=== PATIENT | male | born 1945 | race Caucasian/White ===

== ENCOUNTER 2020-04-27 06:41 | Outpatient (CLI) | payer MEDICARE, OTHER ==
[2020-04-27 14:47] LABS: #Basophils 0.1 10x3/uL (0.0-0.2); #Eosinphils 0.5 10x3/uL (0.0-0.5); #Monocytes 0.7 10x3/uL (0.0-1.1); #Neutrophils 4.8 10x3/uL (1.5-8.4); %Basophils 0.6 % (0.0-2.0); %Lymphocytes 25.2 % (18.0-47.0); %Monocytes 8.8 % (0.0-10.0); %Neutrophils 58.9 % (40.0-75.0); Hemoglobin 11.4 g/dL (14.0-18.0); Mean Corpuscular HGB CONC 30.7 G/DL (32.0-36.0); Mean Corpuscular Volume 94.4 fl (80.0-100.0); Mean Platelet Volume 11.5 fl (7.4-10.4); Platelet Count 158 10x3/uL (130-400); RBC Distribution Width 15.4 % (11.5-14.5); Red Blood Cell (RBC) Count 3.93 10x6/uL (4.40-5.80); White Blood Cell (WBC) Count 8.1 10x3/uL (4.5-11.0)
[2020-04-27 15:04] LABS: Anion Gap 15 mmol/L (10-20); BUN (Urea Nitrogen) 14 mg/dL (8.4-25.7); Calc. Creatinine Clearance 0 mL/min (70-130); Calcium 8.7 mg/dL (7.8-10.44); Carbon Dioxide 27 mmol/L (23-31); Chloride 106 mmol/L (98-107); Glucose 113 mg/dL (83-110); Potassium 4.7 mmol/L (3.5-5.1); Sodium 143 mmol/L (136-145)
[2020-04-28 02:56] LABS: SARS-CoV-2 MS2 Positive; SARS-CoV-2 N Gene Negative; SARS-CoV-2 S Gene Negative; SARS-CoV-2 by NAA Not Detected (NotDetected); SARS-CoV-2 orf1ab Negative
== END 2020-04-27 06:42 | disposition home or self-care (01) ==
LOC: LABBT 06:41
PROVIDERS: ATTEND Orthopaedic Surgery
DX: Z01.818 Encounter for other preprocedural examination (principal); Z20.828 Contact with and (suspected) exposure to other viral communicable diseases; S83.241A Other tear of medial meniscus, current injury, right knee, initial encounter
CPT/HCPCS: 80048; 85025; U0003; 87635; 93005; 93010

== ENCOUNTER 2020-04-30 05:55 | Day surgery (SDC) | payer MEDICARE, OTHER ==
[2020-04-29 10:42] VITALS: BMI 32.1
[2020-04-30] MEDS ORDERED: Midazolam HCl 2 mg/2 ml Vial ONE (06:28)
[2020-04-30] MEDS ORDERED: Fentanyl 100 MCG/2 ML VIAL ONE (06:28)
[2020-04-30] MEDS ORDERED: PROPOFOL 20 ML ONE (06:52)
[2020-04-30] MEDS ORDERED: PHENYLEPHRINE-NS 100 MCG/ML 10 ML SYRINGE ONE (09:52)
[2020-04-30] MEDS ORDERED: PROPOFOL 200 MG/20 ML VIAL ONE (09:52)
[2020-04-30] MEDS ORDERED: Lidocaine 2% w/Epinephrine 1:200K 20 ML VIAL ONE (09:52)
[2020-04-30] MEDS ORDERED: Dexamethasone 20 MG/5 ML VIAL ONE (09:52)
[2020-04-30] MEDS ORDERED: Ondansetron PF 4 MG/2 ML Vial ONE (09:52)
[2020-04-30] MEDS ORDERED: Bupivacaine PF 0.5% 30 ML VIAL ONE (09:52)
[2020-04-30] MEDS ORDERED: Lidocaine 1% PF 5 ML VIAL ONE (09:52)
--- NOTE | 2020-04-30 11:03 | OP ---
DATE OF PROCEDURE: 04/30/2020 PROCEDURE PERFORMED: Left knee arthroscopic partial medial meniscectomy. PREOPERATIVE DIAGNOSIS: Medial meniscus tear, left knee. 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 No loose bodies. Mild patellofemoral arthritis. ANESTHESIA: General. BLOOD LOSS: Minimal. SPECIMEN: None. DRAINS: None. COMPLICATION: None. DESCRIPTION OF PROCEDURE: Informed consent was obtained. The patient was taken to the operating room where general anesthesia was induced. Left leg was prepped and draped in the usual sterile fashion. Scope was placed in the lateral portal. Probe was placed in the medial portal. Findings were as above. I debrided the medial meniscus with basket forceps, smoothed with a 4.0 full-radius resector. I did this alternating until most of the posterior medial meniscus was removed. I did perform a small abrasion chondroplasty on the medial femoral and the tibial plateau surfaces. I swept the gutters for loose bodies, there were no loose bodies. The knee was irrigated and drained. Sterile dressings applied. Job ID: [id number]
== END 2020-04-30 10:35 | disposition home or self-care (01) ==
LOC: SDC 05:55
PROVIDERS: ATTEND Orthopaedic Surgery
PROC: 0SBD4ZZ Excision of Left Knee Joint, Percutaneous Endoscopic Approach (ICD-10-PCS; principal; 2020-04-30)
DX: S83.242A Other tear of medial meniscus, current injury, left knee, initial encounter (principal); M94.262 Chondromalacia, left knee; I10 Essential (primary) hypertension; I25.10 Atherosclerotic heart disease of native coronary artery without angina pectoris; E78.5 Hyperlipidemia, unspecified; Z79.82 Long term (current) use of aspirin; Z79.899 Other long term (current) drug therapy; Z87.891 Personal history of nicotine dependence; Z95.1 Presence of aortocoronary bypass graft; Z95.5 Presence of coronary angioplasty implant and graft
CPT/HCPCS: J0690; J1100; J2250; J2405; J2704; J3010; S0020

== ENCOUNTER 2020-08-13 10:53 | Inpatient (IN) | payer MEDICARE, OTHER ==
[2020-08-13 11:38] LABS: #Eosinphils 0.2 thou/uL (0.0-0.7); #Lymphocytes 1.5 thou/uL (1.20-3.40); #Monocytes 0.9 thou/uL (0.11-0.59); #Neutrophils 4.4 thou/uL (1.40-6.50); %Basophils 0.1 % (0.0-1.0); %Eosinophils 3.3 % (0.0-10.0); %Lymphocytes 21.2 % (21.0-51.0); %Monocytes 12.5 % (0.0-10.0); %Neutrophils 62.9 % (42.0-75.0); Hemoglobin 6.1 g/dL (14.0-18.0); Mean Corpuscular HGB CONC 30.1 g/dL (32.0-36.0); Mean Corpuscular Hemoglobin 25.3 pg (27.0-31.0); Mean Platelet Volume 10.3 fL (7.4-10.4); Platelet Count 156 thou/uL (130-400); RBC Distribution Width 16.2 % (11.5-14.5); Red Blood Cell (RBC) Count 2.39 mill/uL (4.70-6.10)
[2020-08-13 11:40] LABS: INR-International Normal Ratio 2.1; PTT 38.7 sec (22.9-36.1)
[2020-08-13 11:58] LABS: ALT (SGPT) 8 U/L (8-55); AST (SGOT) 19 U/L (5-34); Albumin 3.7 g/dL (3.4-4.8); Alkaline Phosphatase 97 U/L (40-110); Anion Gap 12 mmol/L (10-20); BUN (Urea Nitrogen) 16 mg/dL (8.4-25.7); Bilirubin, Total 0.7 mg/dL (0.2-1.2); Calc. Creatinine Clearance 0 mL/min (70-130); Calcium 8.2 mg/dL (7.8-10.44); Carbon Dioxide 22 mmol/L (23-31); Chloride 110 mmol/L (98-107); Globulin 2.6 g/dL (2.4-3.5); Glucose 117 mg/dL (83-110); Potassium 4.4 mmol/L (3.5-5.1); Protein, Total 6.3 g/dL (5.8-8.1); Sodium 140 mmol/L (136-145)
[2020-08-13] MEDS ORDERED: Acetaminophen 325 MG TAB PO PRN (12:51)
[2020-08-13] MEDS ORDERED: Acetaminophen 650 MG Suppository PR PRN (12:51)
[2020-08-13 14:37] LABS: Iron 28 ug/dL (65-175); Iron Binding Capacity, Total 430 mcg/dL (261-462)
[2020-08-13 15:57] VITALS: BMI 31.7
[2020-08-13 19:02] LABS: Hemoglobin 6.8 g/dL (14.0-18.0)
[2020-08-13] MEDS ORDERED: Atorvastatin Calcium 40 MG TAB PO SCH (21:00)
[2020-08-14 01:34] LABS: Hemoglobin 6.6 g/dL (14.0-18.0)
[2020-08-14 02:54] LABS: SARS-CoV-2 PCR by NAA Not Detected (NotDetected)
[2020-08-14 04:40] LABS: #Eosinphils 0.3 thou/uL (0.0-0.7); #Lymphocytes 1.7 thou/uL (1.20-3.40); #Monocytes 0.9 thou/uL (0.11-0.59); #Neutrophils 5.2 thou/uL (1.40-6.50); %Basophils 0.3 % (0.0-1.0); %Eosinophils 4.2 % (0.0-10.0); %Lymphocytes 20.4 % (21.0-51.0); %Monocytes 11.1 % (0.0-10.0); %Neutrophils 63.9 % (42.0-75.0); Hemoglobin 6.8 g/dL (14.0-18.0); Mean Corpuscular HGB CONC 30.9 g/dL (32.0-36.0); Mean Platelet Volume 10.7 fL (7.4-10.4); Platelet Count 144 thou/uL (130-400); White Blood Cell (WBC) Count 8.2 thou/uL (4.8-10.8)
[2020-08-14 04:57] LABS: Anion Gap 13 mmol/L (10-20); BUN (Urea Nitrogen) 14 mg/dL (8.4-25.7); Calc. Creatinine Clearance 106 mL/min (70-130); Calcium 7.8 mg/dL (7.8-10.44); Carbon Dioxide 21 mmol/L (23-31); Chloride 109 mmol/L (98-107); Glucose 96 mg/dL (83-110); Sodium 139 mmol/L (136-145)
[2020-08-14 07:19] LABS: Hemoglobin 6.5 g/dL (14.0-18.0)
[2020-08-14] MEDS ORDERED: Nitroglycerin 0.4 MG TAB (25 Tab Bottle) SL PRN (11:21)
[2020-08-14] MEDS ORDERED: Pantoprazole 40 MG VIAL IVP SCH (11:30)
[2020-08-14] MEDS ORDERED: GoLYTELY 4,000 ml Bottle PO SCH (17:00)
[2020-08-14 17:07] LABS: Hemoglobin 8.3 g/dL (14.0-18.0)
[2020-08-14] MEDS: Atorvastatin Calcium 40 MG TAB PO SCH (20:34)
[2020-08-14] MEDS: Pantoprazole 40 MG VIAL IVP SCH (20:35)
[2020-08-15 05:52] LABS: Hemoglobin 7.9 g/dL (14.0-18.0); Mean Corpuscular HGB CONC 31.9 g/dL (32.0-36.0); Mean Corpuscular Hemoglobin 26.8 pg (27.0-31.0); RBC Distribution Width 16.4 % (11.5-14.5); Red Blood Cell (RBC) Count 2.96 mill/uL (4.70-6.10); White Blood Cell (WBC) Count 8.2 thou/uL (4.8-10.8)
[2020-08-15 06:03] LABS: #Eosinphils 0.4 thou/uL (0.0-0.7); #Lymphocytes 1.2 thou/uL (1.20-3.40); #Monocytes 0.9 thou/uL (0.11-0.59); #Neutrophils 5.7 thou/uL (1.40-6.50); %Basophils 0.2 % (0.0-1.0); %Eosinophils 5.4 % (0.0-10.0); %Lymphocytes 14.6 % (21.0-51.0); %Monocytes 10.6 % (0.0-10.0); %Neutrophils 69.2 % (42.0-75.0); Elliptocytes SLIGHT = 2-5 cells (100X) (0-1/hpf); MDiff Complete? YES; Mean Platelet Volume 11.3 fL (7.4-10.4); Platelet Count 115 thou/uL (130-400); Platelet Morphology Comment Appears Decreased; Polychromasia SLIGHT = 2-3 cells (100X) (0-2/hpf); Tear Drops SLIGHT = 2-5 cells (100X) (0-1/hpf)
[2020-08-15 07:06] LABS: BUN (Urea Nitrogen) 13 mg/dL (8.4-25.7); Calc. Creatinine Clearance 108 mL/min (70-130); Calcium 8.1 mg/dL (7.8-10.44); Carbon Dioxide 18 mmol/L (23-31); Chloride 109 mmol/L (98-107); Glucose 98 mg/dL (83-110); Potassium 3.9 mmol/L (3.5-5.1); Sodium 140 mmol/L (136-145)
[2020-08-15 07:17] LABS: Anion Gap 17 mmol/L (10-20)
[2020-08-15] MEDS: Pantoprazole 40 MG VIAL IVP SCH (08:54)
[2020-08-15] MEDS ORDERED: PROPOFOL 200 MG/20 ML VIAL ONE (11:40)
[2020-08-15] MEDS ORDERED: Lidocaine 1% PF 5 ML VIAL ONE (11:40)
[2020-08-15] MEDS ORDERED: Promethazine HCl 25 MG/ML VIAL IM PRN (12:09)
[2020-08-15] MEDS ORDERED: Promethazine HCl 25 MG/ML VIAL SLOW IVP PRN (12:09)
[2020-08-15] MEDS ORDERED: Ondansetron HCl/PF 4 MG/2 ML Vial IVP PRN (12:09)
[2020-08-15] MEDS: Atorvastatin Calcium 40 MG TAB PO SCH (20:20)
[2020-08-16 04:45] LABS: #Eosinphils 0.5 thou/uL (0.0-0.7); #Lymphocytes 1.4 thou/uL (1.20-3.40); #Monocytes 0.9 thou/uL (0.11-0.59); #Neutrophils 4.4 thou/uL (1.40-6.50); %Basophils 0.2 % (0.0-1.0); %Eosinophils 6.4 % (0.0-10.0); %Lymphocytes 19.8 % (21.0-51.0); %Neutrophils 61.6 % (42.0-75.0); Hemoglobin 7.9 g/dL (14.0-18.0); Mean Corpuscular HGB CONC 31.3 g/dL (32.0-36.0); Mean Corpuscular Hemoglobin 26.4 pg (27.0-31.0); Mean Corpuscular Volume 84.5 fL (78.0-98.0); Mean Platelet Volume 10.3 fL (7.4-10.4); Platelet Count 157 thou/uL (130-400); RBC Distribution Width 16.4 % (11.5-14.5); Red Blood Cell (RBC) Count 2.99 mill/uL (4.70-6.10); White Blood Cell (WBC) Count 7.2 thou/uL (4.8-10.8)
[2020-08-16 05:03] LABS: Anion Gap 12 mmol/L (10-20); BUN (Urea Nitrogen) 15 mg/dL (8.4-25.7); Calc. Creatinine Clearance 97 mL/min (70-130); Calcium 8.2 mg/dL (7.8-10.44); Carbon Dioxide 26 mmol/L (23-31); Chloride 107 mmol/L (98-107); Glucose 102 mg/dL (83-110); Potassium 3.6 mmol/L (3.5-5.1); Sodium 141 mmol/L (136-145)
[2020-08-16 13:47] VITALS: BP 131/72; TEMP 98.9
== END 2020-08-16 16:42 | disposition home or self-care (01) | DRG 811 ==
LOC: ERS 10:53 → 2NO 12:35
PROVIDERS: ADMIT Student in an Organized Health Care Education/Training Program; ATTEND Internal Medicine
PROC: 30233N1 Transfusion of Nonautologous Red Blood Cells into Peripheral Vein, Percutaneous Approach (ICD-10-PCS; 2020-08-13)
PROC: 0DB68ZX Excision of Stomach, Via Natural or Artificial Opening Endoscopic, Diagnostic (ICD-10-PCS; principal; 2020-08-15)
PROC: 0DBN8ZZ Excision of Sigmoid Colon, Via Natural or Artificial Opening Endoscopic (ICD-10-PCS; 2020-08-15)
DX: D50.0 Iron deficiency anemia secondary to blood loss (chronic) (principal); K29.71 Gastritis, unspecified, with bleeding; K25.4 Chronic or unspecified gastric ulcer with hemorrhage; I25.10 Atherosclerotic heart disease of native coronary artery without angina pectoris; K29.80 Duodenitis without bleeding; I48.0 Paroxysmal atrial fibrillation; K57.30 Diverticulosis of large intestine without perforation or abscess without bleeding; I25.5 Ischemic cardiomyopathy; K64.8 Other hemorrhoids; K63.5 Polyp of colon; I11.0 Hypertensive heart disease with heart failure; I50.9 Heart failure, unspecified; E78.5 Hyperlipidemia, unspecified; Z20.822 Contact with and (suspected) exposure to COVID-19; Z95.810 Presence of automatic (implantable) cardiac defibrillator; Z79.01 Long term (current) use of anticoagulants; Z95.1 Presence of aortocoronary bypass graft; Z87.891 Personal history of nicotine dependence
CPT/HCPCS: 36415; 36416; 36430; 80048; 80053; 82274; 82607; 82728; 82746; 83540; 83550; 83880; 84484; 85025; 85610; 85730; 86850; 86900; 86901; 87635; 88305; 90471; 90732; C9113; G0009; J2704; P9016; U0003; U0005

== ENCOUNTER 2020-11-26 13:00 | Outpatient (CLI) | payer MEDICARE, OTHER ==
[2020-11-26 15:09] LABS: #Eosinphils 0.3 10x3/uL (0.0-0.5); #Monocytes 0.4 10x3/uL (0.0-1.1); #Neutrophils 4.5 10x3/uL (1.5-8.4); %Basophils 0.6 % (0.0-2.0); %Eosinophils 4.4 % (0.0-6.0); %Lymphocytes 25.4 % (18.0-47.0); %Monocytes 5.7 % (0.0-10.0); %Neutrophils 63.5 % (40.0-75.0); Hemoglobin 12.8 g/dL (13.5-17.5); Mean Corpuscular HGB CONC 31.2 g/dL (32.0-36.0); Mean Corpuscular Hemoglobin 29.4 pg (27.0-33.0); Mean Platelet Volume 10.8 fl (7.4-10.4); Platelet Count 122 10x3/uL (150-450); RBC Distribution Width 17.6 % (11.5-14.5); Red Blood Cell (RBC) Count 4.36 10x6/uL (4.32-5.72); White Blood Cell (WBC) Count 7.1 10x3/uL (3.5-10.5)
[2020-11-27 13:21] LABS: Reference Lab Name LABCORP
[2020-11-27 13:22] LABS: Ref Lab Test Ordered CYTOCHROME P450
== END 2020-11-26 13:01 | disposition home or self-care (01) ==
LOC: LABBT 13:00
PROVIDERS: ATTEND Internal Medicine Cardiovascular Disease
DX: Z01.818 Encounter for other preprocedural examination (principal); I48.0 Paroxysmal atrial fibrillation; K92.2 Gastrointestinal hemorrhage, unspecified
CPT/HCPCS: 80053; 81001; 85025; 85610; 85730; 86850; 86900; 86901; 93005; 93010

== ENCOUNTER 2021-01-07 10:11 | Outpatient (CLI) | payer MEDICARE, OTHER ==
[2021-01-07 12:46] LABS: INR-International Normal Ratio 1.2; Prothrombin Time 13.5 sec (9.5-12.1)
[2021-01-07 12:47] LABS: Anion Gap 14 mmol/L (10-20); BUN (Urea Nitrogen) 13 mg/dL (8.4-25.7); Calc. Creatinine Clearance 0 mL/min (70-130); Calcium 8.9 mg/dL (7.8-10.44); Carbon Dioxide 24 mmol/L (23-31); Chloride 110 mmol/L (98-107); Glucose 104 mg/dL (83-110); Potassium 4.1 mmol/L (3.5-5.1); Sodium 144 mmol/L (136-145)
[2021-01-07 12:48] LABS: Hemoglobin 11.8 g/dL (13.5-17.5); Mean Corpuscular HGB CONC 32.4 g/dL (32.0-36.0); Mean Corpuscular Hemoglobin 31.5 pg (27.0-33.0); Mean Corpuscular Volume 97.1 fl (81.2-95.1); Platelet Count 144 10x3/uL (150-450); RBC Distribution Width 15.9 % (11.5-14.5); Red Blood Cell (RBC) Count 3.75 10x6/uL (4.32-5.72); White Blood Cell (WBC) Count 6.3 10x3/uL (3.5-10.5)
[2021-01-08 01:30] LABS: SARS-CoV-2 PCR by NAA Not Detected (NotDetected)
== END 2021-01-07 10:12 | disposition home or self-care (01) ==
LOC: LABBT 10:11
PROVIDERS: ATTEND Internal Medicine Cardiovascular Disease
DX: Z01.818 Encounter for other preprocedural examination (principal); I48.91 Unspecified atrial fibrillation; Z20.822 Contact with and (suspected) exposure to COVID-19
CPT/HCPCS: 80048; 85027; 85610; 85730; 93005; U0003; U0005; 93010

== ENCOUNTER 2021-01-12 08:28 | Day surgery (SDC) | payer MEDICARE, OTHER ==
[2021-01-11 13:43] VITALS: BMI 31.4
[2021-01-12] MEDS ORDERED: PROPOFOL 20 ML ONE (12:03)
[2021-01-12] MEDS ORDERED: Fentanyl 100 MCG/2 ML VIAL ONE (12:03)
== END 2021-01-12 13:26 | disposition home or self-care (01) ==
LOC: CCL 08:28
PROVIDERS: ATTEND Internal Medicine Cardiovascular Disease
PROC: B246ZZ4 Ultrasonography of Right and Left Heart, Transesophageal (ICD-10-PCS; principal; 2021-01-12)
DX: I48.0 Paroxysmal atrial fibrillation (principal); Q21.1 Atrial septal defect; E78.5 Hyperlipidemia, unspecified; I25.2 Old myocardial infarction; I25.10 Atherosclerotic heart disease of native coronary artery without angina pectoris; I11.0 Hypertensive heart disease with heart failure; I50.9 Heart failure, unspecified; I25.5 Ischemic cardiomyopathy; E78.00 Pure hypercholesterolemia, unspecified; Z87.891 Personal history of nicotine dependence; Z79.01 Long term (current) use of anticoagulants; Z79.82 Long term (current) use of aspirin; Z79.899 Other long term (current) drug therapy; Z95.1 Presence of aortocoronary bypass graft; Z95.5 Presence of coronary angioplasty implant and graft; Z95.810 Presence of automatic (implantable) cardiac defibrillator; Z95.818 Presence of other cardiac implants and grafts
CPT/HCPCS: 93312; J2704; J3010

== ENCOUNTER 2022-07-25 15:37 | Inpatient (IN) | payer MEDICARE, OTHER ==
[2022-07-25 16:17] VITALS: BMI 31.1
[2022-07-25 19:24] LABS: Anion Gap 11 mmol/L (10-20); BUN (Urea Nitrogen) 18 mg/dL (8.4-25.7); Calc. Creatinine Clearance 95 mL/min (70-130); Calcium 9.5 mg/dL (7.8-10.44); Carbon Dioxide 25 mmol/L (23-31); Chloride 107 mmol/L (98-107); Estimated GFR 75; Glucose 128 mg/dL (83-110); Magnesium 1.7 mg/dL (1.6-2.6); Potassium 3.9 mmol/L (3.5-5.1); Sodium 139 mmol/L (136-145)
[2022-07-25] MEDS: Metoprolol Tartrate 50 MG TAB PO SCH (21:03)
[2022-07-25] MEDS: Atorvastatin Calcium 40 MG TAB PO SCH (21:03)
[2022-07-25] MEDS: Dofetilide 0.125 MG CAP PO SCH (21:03)
[2022-07-26 05:23] LABS: #Eosinphils 0.2 thou/uL (0.0-0.7); #Lymphocytes 2.3 thou/uL (1.20-3.40); #Monocytes 0.7 thou/uL (0.11-0.59); #Neutrophils 5.2 thou/uL (1.40-6.50); %Eosinophils 2.9 % (0.0-10.0); %Lymphocytes 27.3 % (21.0-51.0); %Monocytes 8.4 % (0.0-10.0); %Neutrophils 61.3 % (42.0-75.0); Band 1 % (5-11); Eosinophils 1 % (0-10); Lymphocytes 21 % (21-51); MDiff Complete? YES; Macrocytosis SLIGHT = 6-15 cells (100X) (0-5/hpf); Mean Corpuscular HGB CONC 32.7 g/dL (32.0-36.0); Mean Corpuscular Hemoglobin 33.7 pg (27.0-31.0); Mean Platelet Volume 8.6 fL (7.4-10.4); Monocytes 4 % (0-10); Neutrophil 72 % (42-75); Platelet Count 111 10x3/uL (130-400); Platelet Morphology Comment Appears Adequate; RBC Distribution Width 13.1 % (11.5-14.5); Reactive Lymphocytes 1 % (0-10); Red Blood Cell (RBC) Count 3.85 mill/uL (4.70-6.10); White Blood Cell (WBC) Count 8.5 10x3/uL (4.8-10.8)
[2022-07-26 05:35] LABS: Anion Gap 17 mmol/L (10-20); BUN (Urea Nitrogen) 14 mg/dL (8.4-25.7); Calc. Creatinine Clearance 95 mL/min (70-130); Calcium 9.1 mg/dL (7.8-10.44); Carbon Dioxide 19 mmol/L (23-31); Chloride 108 mmol/L (98-107); Estimated GFR 77; Glucose 93 mg/dL (83-110); Magnesium 1.7 mg/dL (1.6-2.6); Sodium 140 mmol/L (136-145)
[2022-07-26] MEDS: Dofetilide 0.125 MG CAP PO SCH ×2 (09:50→20:14)
[2022-07-26] MEDS: Metoprolol Tartrate 50 MG TAB PO SCH ×2 (09:50→20:14)
[2022-07-26] MEDS: Aspirin 81 mg Enteric Coated Tablet PO SCH (09:50)
[2022-07-26] MEDS: Atorvastatin Calcium 40 MG TAB PO SCH (20:14)
[2022-07-27 05:03] LABS: Anion Gap 14 mmol/L (10-20); BUN (Urea Nitrogen) 17 mg/dL (8.4-25.7); Calc. Creatinine Clearance 84 mL/min (70-130); Calcium 8.9 mg/dL (7.8-10.44); Carbon Dioxide 23 mmol/L (23-31); Chloride 107 mmol/L (98-107); Estimated GFR 66; Glucose 94 mg/dL (83-110); Magnesium 1.8 mg/dL (1.6-2.6); Potassium 4.1 mmol/L (3.5-5.1); Sodium 140 mmol/L (136-145)
[2022-07-27] MEDS: Dofetilide 0.125 MG CAP PO SCH (10:05)
[2022-07-27] MEDS: Aspirin 81 mg Enteric Coated Tablet PO SCH (10:05)
[2022-07-27] MEDS: Metoprolol Tartrate 50 MG TAB PO SCH (10:06)
[2022-07-27 15:39] VITALS: BP 126/68; TEMP 98.1
== END 2022-07-27 16:19 | disposition home or self-care (01) | DRG 310 ==
LOC: 2NO 15:44
PROVIDERS: ADMIT Internal Medicine; ATTEND Internal Medicine
DX: I48.19 Other persistent atrial fibrillation (principal); I50.9 Heart failure, unspecified; E78.5 Hyperlipidemia, unspecified; I11.0 Hypertensive heart disease with heart failure; K21.9 Gastro-esophageal reflux disease without esophagitis; I25.5 Ischemic cardiomyopathy; E78.00 Pure hypercholesterolemia, unspecified; Z20.822 Contact with and (suspected) exposure to COVID-19; Z95.1 Presence of aortocoronary bypass graft; Z95.810 Presence of automatic (implantable) cardiac defibrillator; Z79.82 Long term (current) use of aspirin; Z79.899 Other long term (current) drug therapy
CPT/HCPCS: 36415; 80048; 83735; 85025; 93005; 93010; J1650; J8499; U0003; U0005

== ENCOUNTER 2022-11-06 07:18 | Day surgery (SDC) | payer MEDICARE, OTHER ==
[2022-11-02 11:48] VITALS: BMI 32.5
[2022-11-02 12:30] LABS: Hemoglobin 14.8 g/dL (13.5-17.5); Mean Corpuscular HGB CONC 33.3 g/dL (32.0-36.0); Mean Corpuscular Hemoglobin 32.4 pg (27.0-33.0); Mean Corpuscular Volume 97.4 fl (81.2-95.1); Mean Platelet Volume 11.2 fl (7.4-10.4); Platelet Count 138 10x3/uL (150-450); RBC Distribution Width 13.4 % (11.5-14.5); Red Blood Cell (RBC) Count 4.57 10x6/uL (4.32-5.72); White Blood Cell (WBC) Count 9.8 10x3/uL (3.5-10.5)
[2022-11-02 12:34] LABS: INR-International Normal Ratio 1.4; PTT 39.4 sec (22.0-33.0); Prothrombin Time 14.7 sec (9.5-12.1)
[2022-11-02 12:46] LABS: Anion Gap 14 mmol/L (10-20); BUN (Urea Nitrogen) 13 mg/dL (8.4-25.7); Calc. Creatinine Clearance 103 mL/min (70-130); Calcium 8.9 mg/dL (7.8-10.44); Carbon Dioxide 25 mmol/L (23-31); Chloride 107 mmol/L (98-107); Estimated GFR 79; Glucose 95 mg/dL (83-110); Potassium 4.3 mmol/L (3.5-5.1); Sodium 142 mmol/L (136-145)
[2022-11-06] MEDS ORDERED: Isoproterenol 0.2 MG/1 ML AMP ONE (08:49)
[2022-11-06] MEDS ORDERED: Heparin 10,000 UNITS/ 10 ML VIAL ONE (08:49)
[2022-11-06] MEDS ORDERED: Heparin 25,000 units/D5W 500 ML ONE (08:49)
[2022-11-06] MEDS ORDERED: fentaNYL 50 mcg/mL 1 mL Vial ONE ×3 (10:50→13:16)
[2022-11-06] MEDS ORDERED: Ondansetron PF 4 MG/2 ML Vial ONE (10:50)
[2022-11-06] MEDS ORDERED: GLYCOPYRROLATE/PF 0.2 MG/ML VIAL ONE (10:50)
[2022-11-06] MEDS ORDERED: Rocuronium Bromide 10 MG/ML (10ML VIAL) ONE (10:50)
[2022-11-06] MEDS ORDERED: ePHEDrine Sulfate 50 MG/10 ML VIAL ONE (10:50)
[2022-11-06] MEDS ORDERED: Lidocaine 1% PF 5 ML VIAL ONE (10:50)
[2022-11-06] MEDS ORDERED: PROPOFOL 200 MG/20 ML VIAL ONE (10:50)
[2022-11-06] MEDS ORDERED: PHENYLEPHRINE-NS 100 MCG/ML 10 ML SYRINGE ONE (10:50)
[2022-11-06] MEDS ORDERED: NEOSTIGMINE 3 MG/3 ML SYR 3 MG/3 ML SYRINGE ONE (10:50)
[2022-11-06] MEDS ORDERED: Protamine Sulfate 50 MG/5 ML VIAL ONE (13:34)
== END 2022-11-06 18:21 | disposition home or self-care (01) ==
LOC: SDC 07:18
PROVIDERS: ATTEND Internal Medicine Cardiovascular Disease
DX: I48.91 Unspecified atrial fibrillation (principal); I48.0 Paroxysmal atrial fibrillation; I42.5 Other restrictive cardiomyopathy; I25.810 Atherosclerosis of coronary artery bypass graft(s) without angina pectoris; I25.2 Old myocardial infarction; I50.9 Heart failure, unspecified; I11.0 Hypertensive heart disease with heart failure; K92.2 Gastrointestinal hemorrhage, unspecified; E78.00 Pure hypercholesterolemia, unspecified; I48.19 Other persistent atrial fibrillation; Z87.891 Personal history of nicotine dependence; Z79.82 Long term (current) use of aspirin; Z79.899 Other long term (current) drug therapy; Z79.01 Long term (current) use of anticoagulants; Z95.810 Presence of automatic (implantable) cardiac defibrillator; Z95.818 Presence of other cardiac implants and grafts; Z88.8 Allergy status to other drugs, medicaments and biological substances
CPT/HCPCS: 80048; 85027; 85347 ×2; 85610; 85730; 93005; 93623; 93656; 93657; C1732 ×3; C1759; C1760; C1894 ×2; J3010; J3490; J1644; J2405; J2704; J2720